=== PATIENT | female | born 1945 | race Caucasian/White ===

== ENCOUNTER 2016-05-11 13:22 | Emergency (ER) | payer MEDICARE ==
[2016-05-11 13:41] VITALS: BP 134/69
--- NOTE | 2016-05-11 15:17 | UC ---
Hand/Wrist HPI - HPI Summary HPI Summary: Pt presents with c/o left thumb pain. Pt reports getting left thumb caught in door 2Xs 5 weeks ago. Pt did not seek medical care s/p thumb injury. Pt reports that yesterday that her left thumb spontaneously became red, swollen, and tender. Pt denies fever or chills or recent injury. - History Of Current Complaint Chief Complaint: UCUpperExtremity Stated Complaint: THUMB PAIN-POST INJURY Time Seen by Provider: 05/11/16 14:26 Hx Obtained From: Patient ?: No Mechanism Of Injury: none. Onset/Duration: Sudden Onset - 1 day ago, Lasting Hours Severity Initially: Mild Severity Currently: Mild Pain Intensity: 3 Pain Scale Used: 0-10 Numeric Character Of Pain: Dull, Aching, Throbbing Alleviating: Rest Associated Signs And Symptoms: Positive: Swelling, Redness Related History: Dominant Hand Right - Allergies/Home Medications Allergies/Adverse Reactions: Allergies Allergy/AdvReac Type Severity Reaction Status Date / Time No Known Allergies Allergy Verified 05/11/16 13:41 Home Medications: Home Medications Aspirin [Aspirin 81 MG TAB] 81 mg PO 05/11/16 [History] Ibuprofen [Advil] 200 mg PO 05/11/16 [History] Lisinopril [Prinivil TAB 20 mg] 20 mg PO DAILY 05/11/16 [History Confirmed 05/11] PMH/Surg Hx/FS Hx/Imm Hx - Additional Past Medical History Additional PMH: had hip replacement surgery 4 weeks ago Previously Healthy: Yes Endocrine History Of: Denies: Diabetes, Thyroid Disease Cardiovascular History Of: Reports: Hypertension Denies: Cardiac Disorders Respiratory History Of: Denies: COPD, Asthma GI/ History Of: Denies: Ulcer - Surgical History Surgical History: Yes Surgery Procedure, Year, and Place: recient hip replacement - Family History Known Family History: Positive: Other - positive [facility] for URI - Social History Lives: With Family Alcohol Use: Occasionally Substance Use Type: None Smoking Status (MU): Never Smoked Tobacco Review of Systems Constitutional: Negative Skin: Other - erythema, tenderness left distal thumb Eyes: Negative ENT: Negative Respiratory: Negative Cardiovascular: Negative Gastrointestinal: Negative Genitourinary: Negative Motor: Negative Neurovascular: Negative Musculoskeletal: Edema - erythema, tenderness mild swelling left distal thumb Neurological: Negative Psychological: Negative All Other Systems Reviewed And Are Negative: Yes Physical Exam Triage Information Reviewed: Yes Appearance: Well-Appearing Vital Signs: Initial Vital Signs Temp 98.2 F 05/11/16 13:37 Pulse 96 05/11/16 13:37 Resp 18 05/11/16 13:37 BP 134/69 05/11/16 13:37 Pulse Ox 97 05/11/16 13:37 Eye Exam: Normal Neck exam: Normal Respiratory Exam: Normal Cardiovascular Exam: Normal Musculoskeletal Exam: Other Musculoskeletal: Positive: Edema @ - left distal thumb, Other: - erythema left distal thumb Neurological Exam: Normal Psychological Exam: Normal Skin Exam: Other - erythema, tenderness swelling (mild) Hand/Wrist Course/Dx - Differential Dx/Diagnosis Differential Diagnosis/HQI/PQRI: Cellulitis, Fracture, Gout, Infection, Other - osteomyelitis Provider Diagnoses: cellulitis Discharge - Discharge Plan Condition: Stable Disposition: HOME Prescriptions: Cephalexin CAP* [Keflex 500 CAP*] 500 mg PO Q12H #14 cap Patient Education Materials: Cellulitis (ED), Contusion in Adults (ED) Referrals: No Primary Care Phys,NOPCP [Primary Care Provider] - Additional Instructions: Please follow up with your PCP or return to clinic. I have provided a referral to an orthopedic provider for you to folllow up with as needed.
== END 2016-05-11 14:57 | disposition home or self-care (01) ==
LOC: UCEAST 13:22
DX: L03.012 Cellulitis of left finger (principal); I10 Essential (primary) hypertension; Z79.82 Long term (current) use of aspirin
CPT/HCPCS: 99212; G0463

== ENCOUNTER → 2016-06-05 11:45 | Day surgery (SDC) | payer MEDICARE ==
[~2016-06-05 11:45] MED LIST: Bupivacaine 0.5% SDV PF* 30 ML VIAL ONE
[2016-06-05 15:23] VITALS: BP 157/71
--- NOTE | 2016-06-06 05:21 | OP ---
DATE OF OPERATION: 06/05/16 - [facility] DATE OF : 45 SURGEON: Ashkan Madera MD. RESTAURANT LINE COOK: CARLITA Irvin. ANESTHESIOLOGIST: None. ANESTHESIA: Local only with 0.5% Marcaine digital block. PRE-OP DIAGNOSIS: Right thumbnail dystrophy and chronic paronychia. POST-OP DIAGNOSIS: Right thumbnail dystrophy and chronic paronychia. OPERATIVE PROCEDURES: 1. Avulsion of right thumb nail plate with cultures and specimen sent to pathology.. INDICATIONS: Anjana is a 71-year-old female who, over the last 6 months, has developed yellowish discoloration and partial detachment of the nail plate. A few weeks ago, she developed some warm red inflammation in the paronychial region. She went to [facility], got some antibiotics and this resolved. She has remained a little hyperemic and a little warm, and it is bothering her a lot less, but is still bothering her just a little bit. We had talked about treatment options. Ultimately, we elected to proceed with removal of the nail plate. ESTIMATED BLOOD LOSS: 2 mL. COMPLICATIONS: None. FINDINGS: As expected. DESCRIPTION OF PROCEDURE: Ms. Reynolds was seen in the preoperative holding area. The correct site, side and procedure were identified. We had a time-out and then I anesthetized the right thumb using a circumferential digital block with 0.5% Marcaine. Twenty or thirty minutes later, we came back to the operating room where the arm was prepped and draped with a Betadine scrub and then a formal time-out was performed. I began by using the curved iris scissors to remove the right thumb nail plate. It was partially detached radially, but still attached ulnarly. This was removed. There was a deeper layer of nail that was similarly removed with the iris scissors until there was nothing but nail bed at the base of the wound. More distally, there was a thickened layer over the sterile matrix that I used the edge of the iris scissors to peel off until I had what looked like a stable , more healthy-appearing layer of matrix throughout the entirety of the matrix. At this point, I divided the nail into multiple soft small sections and sent for aerobic and anaerobic and fungal cultures. I also sent it for permanent specimen with special instructions to analyze it for fungus and to consider a JULIO prep. The finger was then soaked for 5 minutes in a diluted Betadine solution. It was then irrigated clean. I then contoured a wrapper of a chromic gut suture and placed this to splint open the nail fold. This was attached loosely with two 4-0 nylon sutures. The tip of the thumb was then dressed with Xeroform, some ribboned 1-inch Kassandra and 1-inch Coban dressing. I had placed a Tourni-Cot prior to avulsing the nail plate. This was then removed after the dressing was on. The fingertip pinked up immediately. She was then taken to the recovery room in stable condition. [id number]/[facility] #: [id number] MORIS
== END | disposition home or self-care (01) ==
LOC: OREAST 11:45
PROVIDERS: ATTEND Orthopaedic Surgery Hand Surgery
DX: L60.3 Nail dystrophy (principal); B35.1 Tinea unguium; L03.011 Cellulitis of right finger
CPT/HCPCS: 87070; 87073; 87077; 87101; 87106; 87107; 87220; 88304; 88312

== ENCOUNTER 2019-01-03 10:38 | Observation (INO) | payer MEDICARE ==
--- NOTE | 2019-01-03 11:11 | ED ---
Syncope/Near Syncope - HPI Summary HPI Summary: Patient is a 73 y/o F presenting to the ED for a chief complaint of syncope on the morning of 01/03/19 at approximately 09:00. Patient is present with her sister. Patient states that she woke up with a sore throat, cough, nasal discharge, body aches, nausea, and dizziness when walking to make herself some tea. While sitting down in a chair because of the dizziness, the patient had a syncopal episode and fell on her left shoulder. Patient called her sister after the syncopal episode. Patient currently has left shoulder pain and limited ROM in the left arm due to the pain. Patient is able to ambulate the arm, but with pain. Pt denies any fever, chills, erythema of eyes, CP, SOB, abdominal pain, vomiting, dysuria, hematuria, edema, paresthesia or numbness in the bilateral UE , or rash. Patient denies head injury. Patient has had syncope in the past. Patient had an influenza vaccination a few weeks ago. Patient takes 20 mg lisinopril in the morning, amlodipine at night, and baby aspirin daily. Patient sees Dr. Ameya Javier. Patient lives alone. - History Of Current Complaint Chief Complaint: EDSyncope Time Seen by Provider: 01/03/19 10:56 Hx Obtained From: Patient Onset/Duration: Sudden Onset, Resolved Timing: Minutes Context: Loss Of Consciousness Activity At Onset: Other - While walking to make tea Associated Head Trauma: No Aggravating Factor(s): Nothing Alleviating Factor(s): Nothing Associated Signs And Symptoms: Dizzy, Pain - Left shoulder - Allergies/Home Medications Allergies/Adverse Reactions: Allergies Allergy/AdvReac Type Severity Reaction Status Date / Time No Known Allergies Allergy Verified 06/05/16 12:33 Home Medications: Home Medications Amlodipine Besylate [Amlodipine 2.5 mg tab] 2.5 mg PO BEDTIME 01/03/19 [History Confirmed 01/03/19] PMH/Surg Hx/FS Hx/Imm Hx Previously Healthy: Yes Endocrine/Hematology History: Denies: Hx Diabetes, Hx Thyroid Disease Cardiovascular History: Reports: Hx Hypertension Respiratory History: Denies: Hx Asthma, Hx Chronic Obstructive Pulmonary Disease (COPD) GI History: Denies: Hx Ulcer Sensory History: Denies: Hx Legally Blind, Hx Deafness Opthamlomology History: Denies: Hx Legally Blind EENT History: Denies: Hx Deafness - Cancer History Hx Chemotherapy: No Hx Radiation Therapy: No - Surgical History Surgical History: Yes Surgery Procedure, Year, and Place: Hip replacement Infectious Disease History: No Infectious Disease History: Denies: Hx Hepatitis, Hx Human Immunodeficiency Virus (HIV), Traveled Outside the [place] in Last 30 Days - Family History Known Family History: Positive: Other - positive [facility] for URI - Social History Occupation: Retired Lives: Alone Alcohol Use: Daily Hx Substance Use: No Substance Use Type: Reports: None Hx Tobacco Use: No Smoking Status (MU): Never Smoked Tobacco Review of Systems Negative: Fever, Chills Negative: Erythema Positive: Nasal Discharge. Negative: Sore Throat Negative: Chest Pain Positive: Cough. Negative: Shortness Of Breath Positive: Nausea. Negative: Abdominal Pain, Vomiting Negative: dysuria, hematuria Positive: Arthralgia - Left shoulder, Myalgia - Body aches, Decreased ROM - Left shoulder due to pain. Negative: Edema Negative: Rash Neurological: Other - Positive dizziness Positive: Syncope. Negative: Paresthesia - Bilateral UE, Numbness - Bilateral UE All Other Systems Reviewed And Are Negative: Yes Physical Exam - Summary Physical Exam Summary: Constitutional: Well-developed, Well-nourished, Alert. (-) Distressed Skin: Warm, Dry HENT: Normocephalic; Atraumatic Eyes: Conjunctiva normal Neck: Musculoskeletal ROM normal neck. (-) JVD, (-) Stridor, (-) Tracheal deviation Cardio: Rhythm regular, rate normal, Heart sounds normal; Intact distal pulses; The pedal pulses are 2+ and symmetric. Radial pulses are 2+ and symmetric. (-) Murmur Pulmonary/Chest wall: Effort normal. (-) Respiratory distress, (-) Wheezes, (-) Rales Abd: Soft, (-) tenderness, (-) Distension, (-) Guarding, (-) Rebound Musculoskeletal: (-) Edema Lymph: (-) Cervical adenopathy Neuro: Alert, Oriented x3 Psych: Mood and affect Normal Triage Information Reviewed: Yes Vital Signs On Initial Exam: Initial Vitals Temp Pulse Resp BP Pulse Ox 99.0 F 92 19 169/80 100 01/03/19 10:41 01/03/19 10:41 01/03/19 10:41 01/03/19 10:41 01/03/19 10:41 Vital Signs Reviewed: Yes Procedures - Sedation Patient Received Moderate/Deep Sedation with Procedure: No Diagnostics - Vital Signs Vital Signs Temp Pulse Resp BP Pulse Ox 01/03/19 11:00 99 01/03/19 10:43 85 17 99 01/03/19 10:41 99.0 F 92 19 169/80 100 - Laboratory Result Diagrams: 01/03/19 11:38 01/03/19 11:38 Lab Statement: Any lab studies that have been ordered have been reviewed, and results considered in the medical decision making process. - Radiology Shoulder X-ray Radiology Interpretation Completed By: Radiologist Summary of Radiographic Findings: Shoulder X-ray IMPRESSION: #. Nonarticular fracture distal third of the clavicle. Reviewed by ED physician. Re-Evaluation - Re-Evaluation First Re-Evaluation Time: 13:59 Change: Unchanged Comment: At 13:59, patient is reporting frequent urination. Course/Dx Course Of Treatment: Patient is a 73 y/o F presenting to the ED for a chief complaint of syncope on the morning of 01/03/19 at approximately 09:00. Patient is present with her sister. Patient states that she woke up with a sore throat, cough, nasal discharge, body aches, nausea, and dizziness when walking to make herself some tea. While sitting down in a chair because of the dizziness, the patient had a syncopal episode and fell on her left shoulder. Patient called her sister after the syncopal episode. Patient currently has left shoulder pain and limited ROM in the left arm due to the pain. Patient is able to ambulate the arm, but with pain. Pt denies any fever, chills, erythema of eyes, CP, SOB, abdominal pain, vomiting, dysuria, hematuria, edema, paresthesia or numbness in the bilateral UE, or rash. Patient denies head injury. Patient has had syncope in the past. Patient had an influenza vaccination a few weeks ago. Patient takes 20 mg lisinopril in the morning, amlodipine at night, and baby aspirin daily. Patient sees Dr. Ameya Javier. Patient lives alone. On exam, unremarkable findings. In the ED course, patient was given fluids. Laboratory abnormal findings: WBC 14.6, RBC 4.88, absolute neuts 13.2, absolute lymphs 0.5, APTT 59.7, sodium 126, chloride 97, carbon dioxide 18, glucose 108, urine specific gravity 1.009, urine ketones trace, urine leukocyte esterase trace, amorphous crystals present. Shoulder X-ray IMPRESSION: #. Nonarticular fracture distal third of the clavicle. At 13:59, patient is reporting frequent urination. At 14:04, Dr. Francine Anaya agrees to admit the patient to [facility] with a diagnosis of syncope, chills, and left clavicle fracture. Patient will be admitted to [facility] with a diagnosis of syncope, chills, and left clavicle fracture. - Diagnoses Provider Diagnoses: Syncope, Chills, Fracture of left clavicle - Physician Notifications Discussed Care of Patient With: Francine Anaya - At 14:04, Dr. Francine Anaya agrees to admit the patient to [facility] with a diagnosis of syncope, chills, and left clavicle fracture. Time Discussed With Above Provider: 14:04 Instructed by Provider To: Admit As Inpatient Discharge ED - Sign-Out/Discharge Documenting (check all that apply): Patient Departure - Discharge Plan Condition: Stable Disposition: ADMITTED TO [facility] Referrals: Ameya Javier MD [Primary Care Provider] - - Attestation Statements Document Initiated by Scribe: Yes Documenting Scribe: Ely Rosado Provider For Whom Scribe is Documenting (Include Credential): Xander Mukherjee MD Scribe Attestation: Ely Slaughter, scribed for Xander Mukherjee MD on 01/03/19 at 1434. Status of Scribe Document: Ready
[2019-01-03] MEDS: NS 0.9% 1000 ML** 2,000 ML IV ONE (11:52)
[2019-01-03 11:55] LABS: ABS Basophils 0.1 10^3/ul (0-0.2); ABS Lymphocytes 0.5 10^3/ul (1.0-4.8); ABS Monocytes 0.8 10^3/ul (0-0.8); ABS Neutrophils 13.2 10^3/ul (1.5-7.7); Hematocrit 42 % (35-47); Hemoglobin 14.3 g/dL (12.0-16.0); Lymphocyte % 3.3 %; Mean Corpuscular HGB Conc 34 g/dL (31-36); Mean Corpuscular Hemoglobin 29 pg (27-31); Mean Corpuscular Volume 86 fL (80-97); Mean Platelet Volume 7.5 fL (7.4-10.4); Nucleated Red Blood Cells % 0.1; Platelet Count 323 10^3/uL (150-450); Red Blood Count 4.88 10^6 /uL (3.70-4.87); Red Cell Distribution Width 13 % (10-15); White Blood Count 14.6 10^3/uL (3.5-10.8)
[2019-01-03 12:01] LABS: Activated Partial Thrombo Time 59.7 seconds (26.0-38.0); INR 0.98 (0.82-1.09)
[2019-01-03 12:12] LABS: Rapid Strep Molecular Negative (Negative)
[2019-01-03 12:21] LABS: Influenza A Molecular NEGATIVE (Negative); Influenza B Molecular NEGATIVE (Negative)
[2019-01-03 13:04] LABS: Albumin 4.1 g/dL (3.2-5.2); Albumin/Globulin Ratio 1.2 (1-3); BUN/Creatinine Ratio 16.4 (8-20); Calcium 9.8 mg/dL (8.6-10.3); EGFR African American 116.3 (>60); EGFR Non-African American 96.1 (>60); Globulin 3.4 g/dL (2-4); Total Bilirubin 0.6 mg/dL (0.2-1.0); Total Protein 7.5 g/dL (6.4-8.9)
[2019-01-03 13:06] LABS: Urine Appearance Cloudy; Urine Bacteria Absent (Absent); Urine Bilirubin Negative (Negative); Urine Blood Negative (Negative); Urine Color Yellow; Urine Glucose Negative (Negative); Urine Ketones Trace (Negative); Urine Nitrite Negative (Negative); Urine Protein Negative (Negative); Urine Red Blood Cell Trace(0-2/hpf) (Absent); Urine Specific Gravity 1.009 (1.010-1.030); Urine Urobilinogen Negative (Negative); Urine White Blood Cell Trace(0-5/hpf) (Absent)
[2019-01-03] MEDS ORDERED: Acetaminophen TAB* 325 MG PO PRN (16:15)
[2019-01-03] MEDS ORDERED: oxyCODONE TAB* 5 MG TAB PO PRN (16:16)
[2019-01-03] MEDS ORDERED: Morphine INJ* 2 MG/ML 1 ML SYRINGE (TWO MG - NEW SYRINGE VERSION) IV PRN (16:16)
[2019-01-03] MEDS ORDERED: NS 0.9% 1000 ML** 1,000 ML IV SCH (16:30)
[2019-01-03] MEDS ORDERED: Ibuprofen TAB* 600 MG PO PRN (16:36)
[2019-01-03] MEDS ORDERED: Benzocaine/Menthol LOZ* 1 LOZENGE MT PRN (16:40)
[2019-01-03 17:02] LABS: TSH (Thyroid Stimulating Horm) 0.79 mcIU/mL (0.34-5.60)
--- NOTE | 2019-01-03 20:44 | HP ---
CC: Dr. Javier * HISTORY AND PHYSICAL: DATE OF ADMISSION: 01/03/19 TIME OF EVALUATION: 3:35 p.m. PRIMARY CARE PROVIDER: Dr. Javier. CHIEF COMPLAINT: "I passed out." HISTORY OF PRESENT ILLNESS: Mrs. Reynolds is a 73-year-old female with a past medical history of hypertension, ocular migraine, osteoarthritis, who presents to the emergency room after a syncopal episode at home. The patient states that she was feeling well yesterday. In the afternoon, she went for a long walk with her sister and she was feeling a little tired when she returned. Last night, she developed mild sore throat, but went to bed, feeling relatively well. She woke up this morning and she was having more sore throat and some nausea. She walked to the kitchen, made some tea, and she started to feel dizzy. She knew she was going to pass out, and her initial intention was to lower herself down to the floor, but she eventually sat on a chair, passed out, and fell from the chair towards her left side. She states that her loss of consciousness was brief and she had some difficulty getting up because of pain on her left shoulder. She states that she had true prior syncopal episodes, both of them in the postop period (one after she had her hip replaced and another one after Achilles tendon surgery), and the impression was that those episodes were related to the surgical procedures and medications. She states that during this episode, she had some urinary incontinence, but also states that this is not uncommon for her, as she has had more pronounced urinary incontinence. She denies chest pain, palpitations, vomiting, diarrhea, or urinary complaints. She states that she felt dizzy and her vision was going dark before she passed out. At the time of my interview, her major complaint is her left shoulder. She still has some mild sore throat, but this is not bothering her much at this time. PAST MEDICAL HISTORY: 1. Hypertension. 2. Ocular migraine. 3. Osteoarthritis. PAST SURGICAL HISTORY: 1. Status post left hip replacement in 2016. 2. Status post Achilles tendon repair in 2001. MEDICATIONS: 1. Amlodipine 2.5 mg p.o. at bedtime. 2. Aspirin 81 mg p.o. daily. 3. Lisinopril 20 mg p.o. daily. ALLERGIES: No known drug allergies. FAMILY HISTORY: The patient's father had a history of Alzheimer's and he passed of old age at 95. The patient's mother had a stroke. SOCIAL HISTORY: The patient denies tobacco or drug use. She usually has a small glass of wine at night with dinner. Surrogate decision maker is her sister, Stefanie Franco, phone number is [phone]. REVIEW OF SYSTEMS: A 14-point review of systems was performed and all the pertinent negatives and positives as per HPI. PHYSICAL EXAMINATION GENERAL: The patient is a pleasant elderly lady, sitting up in the ED stretcher , in no acute distress. VITAL SIGNS: Temperature 100.2, heart rate is 95, respiratory rate is 18, oxygen saturation is 100% on room air, blood pressure is 146/76. HEENT: Pupils are equal. Dry mucous membranes. The patient has mild erythema over the pharynx, but no exudate. CHEST: Breath sounds bilaterally with no added sounds. CVS: Normal S1, S2. Regular rate and rhythm. ABDOMEN: Soft, nontender, nondistended. Bowel sounds are present. EXTREMITIES: No edema. The patient has an ecchymosis to the posterior aspect of her left shoulder and limited range of motion secondary to pain. NEUROLOGIC: She is alert x3. Face is symmetric. Speech is clear. She is able to move all 4 extremities, although her left upper extremity is limited due to pain. Sensation is intact. DIAGNOSTIC STUDIES/LAB DATA: The patient had a CBC that showed a WBC of 14.6, hemoglobin of 14.3, hematocrit of 42, platelets of 323 with 90% neutrophils. INR is 0.98. Chemistry showed a sodium of 126, potassium of 4, chloride of 97, bicarb of 18, anion gap of 11, BUN of 10, creatinine of 0.61, glucose of 108, lactic acid is 1.2, calcium is 9.8. LFTs are normal. Troponin is 0. Urinalysis showed trace ketones, trace LE, and amorphous crystals are present. Influenza A and B were negative as well as Group A strep. Shoulder x-ray showed a non-articular fracture of the distal third of the clavicle. ASSESSMENT AND PLAN: Ms. Reynolds is a 73-year-old female with a past medical history of hypertension, ocular migraine, osteoarthritis, who presents to the emergency room after a syncopal episode. 1. Syncope. Etiology is unclear at this time. Clinically, she appears to be mildly dehydrated, but it is not clear to me that is enough to explain her syncopal episode. She will be admitted as observation to telemetry floor where we are going to monitor her. We will check orthostatic vital signs and she will received gentle IV hydration. She will be monitored on telemetry and we are going to check an echocardiogram. The patient had prior syncopal episodes in the past, but they are usually attributed to her postop state. At this point, she denies chest pain, but I am going to check serial troponins to rule out acute coronary syndrome. There are no focal neurological deficits at this time to suggest a THREAD PULLING MACHINE ATTENDANT etiology. Seizure is on the differential diagnosis, as she had urinary incontinence, but her description is mostly suggestive of a syncopal episode. Depending on the results of her workup and further symptoms, we may pursue CT brain and EEG depending if she has any change in condition. 2. Mild pharyngitis. I believe this is likely viral. Her symptoms started yesterday. She has a low-grade temperature in the emergency room and some leukocytosis, but I do not think antibiotics are indicated at this time, as I believe this to be viral for now. She will receive gentle IV hydration and symptomatic treatment. 3. Hypertension. We will continue her amlodipine and lisinopril with holding parameters. 4. DVT prophylaxis. The patient has a score of 2 on a DVT Prophylaxis Risk Assessment Guide and she will be started on subcutaneous heparin. 5. Code status is full. 6. Hyponatremia. The patient has had hyponatremia in the past, but not as low as today. This may be exacerbated in the setting of dehydration. I will recheck serum urine osmolality as well as urinary sodium. As I believe, she is on the grain drier side at this time, she will receive gentle IV hydration and we will monitor her sodium. TIME SPENT: Approximately 55 minutes was spent with patient interview, medical records review, physical examination to complete this admission, more than half this time was spent [id number] with the patient and coordination of care. [id number]/[facility] #: [id number] MORIS
[2019-01-03] MEDS ORDERED: amLODIPine TAB* 5 MG PO SCH (21:00)
--- NOTE | 2019-01-03 21:50 | CONS ---
CONSULTATION REPORT: DATE OF CONSULT: 01/03/19 REASON FOR CONSULT: Left lateral clavicle fracture. HISTORY OF PRESENT ILLNESS: The patient is a 73-year-old woman, right-hand dominant, retired systems accountant, who lives alone, who sustained a fall at home secondary to an episode of syncope, earlier today, resulting in left shoulder pain. The patient was brought in by ambulance to [facility] Emergency Department because of her left shoulder pain and she was diagnosed in the emergency department with a left clavicle fracture. She has been admitted for workup of syncope. She states that she has no prior history of left shoulder injury. The patient states that she has fainted several times in her life, but none recent. The patient states that this morning, she came in to the kitchen and sat down on a chair. She felt slightly dizzy when in the kitchen and when she sat down on the chair, she for a very brief second blacked out and fell. She was awake and alert almost immediately when she hit the ground. She noted some left shoulder pain with and without movement and was concerned about this and so called an ambulance. The patient shared with the emergency room staff that she had awoken with a sore throat, cough, nasal discharge, body aches, nausea, and dizziness, and that she was walking in the kitchen to make herself tea. The patient could not recall when speaking with me whether or not she had recently gone to the bathroom prior to this fainting episode. After the fainting episode, the patient called her sister. The patient came to the emergency department. PAST MEDICAL HISTORY: Hypertension. PAST SURGICAL HISTORY: Hip replacement surgery in [place]. MEDICATIONS: Amlodipine p.o. q.h.s. ALLERGIES: No known drug allergies. FAMILY HISTORY: Noncontributory. SOCIAL HISTORY: Right-hand dominant. Retired. Formerly an systems accountant, lives alone. Niece lives locally and was visiting hospital room at the time of the consultation. The patient has never smoked tobacco. Has daily alcohol use. REVIEW OF SYSTEMS: The patient detailed to emergency department positive recent nasal discharge, cough, nausea, body aches, dizziness, recent syncopal episode. The patient has left shoulder pain. No numbness or tingling. PHYSICAL EXAM: No acute distress, alert and oriented, appropriate mood and affect, appropriate dress and hygiene, well-coordinated bilateral upper and lower extremities. The patient is lying in bed with the head of the bed elevated. Vital Signs: Most currently from 5:59 p.m. today, body temperature 98.0 degrees Fahrenheit temporal, pulse 101, blood pressure 153/65, respiratory rate 18, O2 saturation of 100% on room air. Left shoulder exam shows mild-to- moderate soft tissue swelling. There is some focal ecchymosis posterosuperiorly about the shoulder. Positive tenderness to palpation about the distal clavicle. Pain with passive range of motion of the left shoulder joint. Left upper extremity neurovascularly intact distally. DIAGNOSTIC STUDIES/LAB DATA: White blood cell count 14.6 with a neutrophil percentage of 90.1%. Troponin 0.00 and 0.01. Sodium 126. Nitrite negative, leukocyte esterase trace, urine white blood cells trace with absent bacteria. Negative influenza and group A strep rapid testing. Imaging: X-rays of the left shoulder obtained today demonstrated a displaced lateral clavicle fracture. There is displacement of the medial fragment superiorly of approximately 100%. Looking at the scapular Y view, it appears that the medial fragment is also displaced posteriorly, although it is difficult to note for sure. Axillary lateral view appears to confirm this posterior displacement of the medial fragment. Agree with the radiologist that a bone is certainly osteopenic. No other fractures visible about the shoulder girdle. ASSESSMENT: Left lateral clavicle fracture, displaced. PLAN: 1. Discussed with the patient as well as briefly with her niece the clavicle anatomy, clavicle fractures in general, both midshaft, lateral, and medial, and information regarding prognosis and treatment of lateral clavicle fractures. 2. Discussed the high incidence of bony nonunion of displaced lateral clavicle fractures, but also discussed that only approximately 50% of these bony nonunion are symptomatically painful. 3. Offer the patient both nonoperative and operative management. I told the patient that my preference for surgical technique in her case given the small fragment lateral and the osteopenic bone, would be an acromial hook plate, that would be in placed in 1 procedure and then would be removed in a second procedure approximately 4 months postoperatively. I believe that this would be a better surgical fix than would be superior plate with or without coracoclavicular tape fixation. 4. The patient has already been placed in a sling by the time we finished our consultation. I recommend that the patient remain in the sling for comfort. 5. I suspect given the patient's activity level, being an active outdoors person and hiker, she is leaning towards having this surgically fixed. If she does have it surgically fixed, especially given her recent syncopal episode, she would need to be optimized and cleared by a medical doctor. I told the patient that this could be elective outpatient surgery or if the timing aligns correctly and there is sufficient available operating room time, this is a surgery I could conceivably do on 01/05/19, in the late afternoon. 6. I gave the patient my telephone number and business card. She can call me with any questions or concerns. Orthopedics will continue to follow the patient while she is an inpatient and we will adjust our plans accordingly based on the patient's preference for surgery or no surgery, based on the findings of the patient's syncopal workup, having been admitted to the hospitalist service, and based on the patient being optimized for surgery and the appropriateness of timing of surgery for the patient given medical, surgical , and administrative considerations. [id number]/[facility] #: [id number] MORIS
[2019-01-03] MEDS: Heparin VIAL(*) 5000 UNITS/ML VIAL (FIVE THOUSAND) SUBCUT SCH (22:15)
[2019-01-03 22:54] LABS: Troponin I 0.01 ng/mL (<0.04)
[2019-01-04 05:36] LABS: ABS Lymphocytes 0.9 10^3/ul (1.0-4.8); ABS Monocytes 0.9 10^3/ul (0-0.8); ABS Neutrophils 7.8 10^3/ul (1.5-7.7); Eosinophil % 0.1 %; Hematocrit 36 % (35-47); Lymphocyte % 9.2 %; Mean Corpuscular HGB Conc 33 g/dL (31-36); Mean Corpuscular Hemoglobin 29 pg (27-31); Mean Corpuscular Volume 87 fL (80-97); Mean Platelet Volume 7.8 fL (7.4-10.4); Platelet Count 285 10^3/uL (150-450); Red Blood Count 4.11 10^6 /uL (3.70-4.87); Red Cell Distribution Width 13 % (10-15); White Blood Count 9.7 10^3/uL (3.5-10.8)
[2019-01-04] MEDS: Heparin VIAL(*) 5000 UNITS/ML VIAL (FIVE THOUSAND) SUBCUT SCH (05:44)
[2019-01-04 05:52] LABS: Calcium 8.6 mg/dL (8.6-10.3); EGFR African American 146.3 (>60); EGFR Non-African American 120.9 (>60); Potassium 3.4 mmol/L (3.5-5.0)
--- NOTE | 2019-01-04 08:24 | PN ---
Subjective - Subjective Reason for Note: Discharge Note History: DISCHARGE SUMMARY; I reviewed Ashleigh Reynolds's presentation with the patient and Dr. Francine Anaya' s admitting H and P, and Dr. Faisal King's orthopedic consultation note. She has a viral pharyngitis and had been lying in bed. She got up to make tea. She felt light headed and sat down in a chair, and fainted. She woke with left shoulder pain. She has a history of vasovagal syncope. Today, her pharyngitis is feeling much better and she feels ready to go home. She has good pain control with ibuprofen. Active Problems: Active Problems Closed left clavicular fracture (Acute) S42.002A Pharyngitis with viral syndrome (Acute) J02.9, B34.9 Syncope (Acute) R55 Essential hypertension (Chronic) I10 Osteoarthritis of both hips (Chronic) M16.0 Osteopenia (Chronic) M85.80 Raynaud phenomenon (Chronic) I73.00 Current Medications: Current Medications Amlodipine Besylate (Norvasc Tab*) 2.5 mg PO BEDTIME PENDING SALE TO [facility] Last Admin: 01/03/19 22:15 Dose: Not Given Aspirin (Aspirin Ec Tab*) 81 mg PO DAILY PENDING SALE TO [facility] Heparin Sodium (Porcine) (Heparin Vial(*)) 5,000 units SUBCUT Q8HR PENDING SALE TO [facility] Last Admin: 01/04/19 05:44 Dose: 5,000 units Sodium Chloride (Ns 0.9% 1000 Ml) 1,000 mls @ 75 mls/hr IV PER RATE PENDING SALE TO [facility] Ibuprofen (Motrin Tab*) 600 mg PO Q6H PRN PRN Reason: MILD PAIN or TEMP > 100.4 Last Admin: 01/03/19 16:44 Dose: 600 mg Lisinopril (Prinivil Tab*) 20 mg PO DAILY PENDING SALE TO [facility] Morphine Sulfate (Morphine Inj (Syringe))*) 1 mg IV Q4H PRN PRN Reason: SEVERE PAIN Oxycodone HCl (Roxycodone Tab*) 5 mg PO Q4H PRN PRN Reason: PAIN - MODERATE Throat Lozenges (Chloraseptic Addison*) 1 addison MT Q4H PRN PRN Reason: SORE THROAT - Review of Systems Constitutional Symptoms: No: Fatigue, Fever HEENT: No Other - sore throat is improving Eyes: Negative: Change in Vision, Double Vision Pulmonary: Negative: Cough, Sputum, Hemoptysis Cardiology: Positive: Syncope Negative: Chest Pain, Shortness of Breath, Palpitations, Swelling of Ankles, Proximal NocturnalDyspnea, Orthopnoea Gastroenterology: Negative: Abdominal Pain, Nausea, Vomiting Genital - Urinary: Negative: Dysuria Neurology: Positive: Migraines - previous history of migraines - no headache now Negative: Headache, Dizziness, Change in Balancing, Change in Coordination, Change in Memory, Change in Speech, Change in Sphincter Function, Numbness\\ Paresthesiae, Unexplained Weakness, Hx of Stroke\\TIA, Hx of Seizures Home Medications: Home Medications Medication Instructions Recorded Confirmed Type Aspirin [Aspirin 81 MG TAB] 81 mg PO DAILY 05/11/16 01/03/19 History Lisinopril [Prinivil TAB 20 mg] 20 mg PO DAILY 05/11/16 01/03/19 History Amlodipine Besylate [Amlodipine 2.5 mg PO BEDTIME 01/03/19 01/03/19 History 2.5 mg tab] Allergies: Allergies Allergy/AdvReac Type Severity Reaction Status Date / Time No Known Allergies Allergy Verified 01/03/19 17:07 Objective - Vital Signs Vital Signs: Vital Signs 01/03/19 01/03/19 01/03/19 10:41 10:43 11:00 Temperature 99.0 F Pulse Rate 92 85 86 Respiratory 19 17 19 Rate Blood Pressure 169/80 (mmHg) O2 Sat by Pulse 100 99 100 Oximetry 01/03/19 01/03/19 01/03/19 11:13 11:43 12:00 Temperature Pulse Rate 92 Respiratory 19 20 14 Rate Blood Pressure 169/88 146/76 (mmHg) O2 Sat by Pulse Oximetry 01/03/19 01/03/19 01/03/19 13:00 14:00 16:32 Temperature 100.2 F Pulse Rate Respiratory 18 21 Rate Blood Pressure (mmHg) O2 Sat by Pulse Oximetry 01/03/19 01/03/19 01/03/19 16:34 16:35 17:59 Temperature 98.0 F Pulse Rate 101 Respiratory 25 23 18 Rate Blood Pressure 156/73 153/65 (mmHg) O2 Sat by Pulse 100 Oximetry 01/03/19 01/03/19 01/03/19 19:05 19:08 19:09 Temperature 98.6 F Pulse Rate 103 101 107 Respiratory 16 16 20 Rate Blood Pressure 141/69 133/62 106/56 (mmHg) O2 Sat by Pulse 97 98 97 Oximetry 01/03/19 01/03/19 01/03/19 20:00 20:26 23:15 Temperature 97.4 F 98.6 F Pulse Rate 63 89 Respiratory 16 18 20 Rate Blood Pressure 98/47 141/59 (mmHg) O2 Sat by Pulse 97 97 99 Oximetry 01/04/19 03:15 Temperature 98.7 F Pulse Rate 90 Respiratory 16 Rate Blood Pressure 142/69 (mmHg) O2 Sat by Pulse 98 Oximetry - Intake and Output Intake and Output: Intake & Output 01/01/19 01/02/19 01/03/19 01/04/19 12:59 11:59 11:59 11:59 Intake Total 1999 Output Total 0 Balance 1999 Weight 130 lb 132 lb Intake: IV Fluids 1999 Oral 0 Output: Urine 0 ADLs: Meal Record Start: 01/03/19 16: 57 Freq: DAILY@0900,1400,1800 Status: Active Protocol: Created 01/03/19 16:57 System (Rec: 01/03/19 16:57 System [email or web address]) Intake and Output Start: 01/03/19 10: 45 Freq: Status: Active Protocol: Created 01/03/19 10:45 System (Rec: 01/03/19 10:45 System [id number]) Intake and Output Start: 01/03/19 16: 57 Freq: DAILY@0600,1400,2200 Status: Active Protocol: Created 01/03/19 16:57 System (Rec: 01/03/19 16:57 System [email or web address]) Document 01/03/19 20:09 [id number] (Rec: 01/03/19 20:11 [id number] [id number]) Document 01/04/19 06:00 [id number] (Rec: 01/04/19 06:49 [id number] [email or web address]) - Physical Exam General Physical Exam Comment: She is warm and well perfused. She is fully alert and oriented, is able to give a good account of herself. She has a mild pharyngitis on inspection General: No Cyanosis, No Anemia, No Jaundice, No Clubbing Eye Exam: bilateral: EOMI Skin: Normal: Rash Lungs and Chest: Yes: Chest Expansion Full, Chest Expansion Symetrica, Percussion Note Resonant, Vessicular Breath Sounds. No: Crackles, Wheezes, Respiratory Distress Heart Rate and Rhythm: Regular JVP: Not Elevated Additional Cardiovascular: Yes: Normal Heart Sounds. No: Heart Murmur, Pedal Edema Abdominal Exam: Yes: Soft, Bowel Sounds Present. No: Distention, Abdominal Tenderness - Extremities Cranial Nerves II-XII Intact: Yes Limbs: Normal Power, Normal Tone, Normal Coordination - finger-nose - Neuro Orientation: A/O x3 Psychiatric: Normal Speech: Normal Results - Results Lab Results: Laboratory Results - last 24 hr 01/03/19 01/03/19 01/03/19 11:38 11:38 11:38 WBC 14.6 H RBC 4.88 H Hgb 14.3 Hct 42 MCV 86 MCH 29 MCHC 34 RDW 13 Plt Count 323 MPV 7.5 Neut % (Auto) 90.1 Lymph % (Auto) 3.3 [place] % (Auto) 5.6 Eos % (Auto) 0.0 Baso % (Auto) 1.0 Absolute Neuts (auto) 13.2 H Absolute Lymphs (auto) 0.5 L Absolute Monos (auto) 0.8 Absolute Eos (auto) 0.0 Absolute Basos (auto) 0.1 Absolute Nucleated RBC 0.0 Nucleated RBC % 0.1 INR (Anticoag Therapy) 0.98 APTT 59.7 H Sodium 126 L Potassium 4.0 Chloride 97 L Carbon Dioxide 18 L Anion Gap 11 BUN 10 Creatinine 0.61 Est GFR ( Amer) 116.3 Est GFR (Non-Af Amer) 96.1 BUN/Creatinine Ratio 16.4 Glucose 108 H Serum Osmolality Lactic Acid Calcium 9.8 Total Bilirubin 0.60 AST 19 ALT 11 Alkaline Phosphatase 93 Troponin I 0.00 Total Protein 7.5 Albumin 4.1 Globulin 3.4 Albumin/Globulin Ratio 1.2 TSH 0.79 Urine Color Urine Appearance Urine pH Ur Specific [place] Urine Protein Urine Ketones Urine Blood Urine Nitrate Urine Bilirubin Urine Urobilinogen Ur Leukocyte Esterase Urine WBC (Auto) Urine RBC (Auto) Amorphous Crystals Urine Bacteria Urine Osmolality U Sodium Concentration Urine Glucose Influenza A (Rapid) Influenza B (Rapid) Group A Strep Rapid 01/03/19 01/03/19 01/03/19 11:38 11:38 11:51 WBC RBC Hgb Hct MCV MCH MCHC RDW Plt Count MPV Neut % (Auto) Lymph % (Auto) [place] % (Auto) Eos % (Auto) Baso % (Auto) Absolute Neuts (auto) Absolute Lymphs (auto) Absolute Monos (auto) Absolute Eos (auto) Absolute Basos (auto) Absolute Nucleated RBC Nucleated RBC % INR (Anticoag Therapy) APTT Sodium Potassium Chloride Carbon Dioxide Anion Gap BUN Creatinine Est GFR ( Amer) Est GFR (Non-Af Amer) BUN/Creatinine Ratio Glucose Serum Osmolality 275 Lactic Acid 1.2 Calcium Total Bilirubin AST ALT Alkaline Phosphatase Troponin I Total Protein Albumin Globulin Albumin/Globulin Ratio TSH Urine Color Urine Appearance Urine pH Ur Specific [place] Urine Protein Urine Ketones Urine Blood Urine Nitrate Urine Bilirubin Urine Urobilinogen Ur Leukocyte Esterase Urine WBC (Auto) Urine RBC (Auto) Amorphous Crystals Urine Bacteria Urine Osmolality U Sodium Concentration Urine Glucose Influenza A (Rapid) Influenza B (Rapid) Group A Strep Rapid Negative 01/03/19 01/03/19 01/03/19 11:51 12:41 16:20 WBC RBC Hgb Hct MCV MCH MCHC RDW Plt Count MPV Neut % (Auto) Lymph % (Auto) [place] % (Auto) Eos % (Auto) Baso % (Auto) Absolute Neuts (auto) Absolute Lymphs (auto) Absolute Monos (auto) Absolute Eos (auto) Absolute Basos (auto) Absolute Nucleated RBC Nucleated RBC % INR (Anticoag Therapy) APTT Sodium Potassium Chloride Carbon Dioxide Anion Gap BUN Creatinine Est GFR ( Amer) Est GFR (Non-Af Amer) BUN/Creatinine Ratio Glucose Serum Osmolality Lactic Acid 1.1 Calcium Total Bilirubin AST ALT Alkaline Phosphatase Troponin I Total Protein Albumin Globulin Albumin/Globulin Ratio TSH Urine Color Yellow Urine Appearance Cloudy Urine pH 7.0 Ur Specific [place] 1.009 L Urine Protein Negative Urine Ketones Trace A Urine Blood Negative Urine Nitrate Negative Urine Bilirubin Negative Urine Urobilinogen Negative Ur Leukocyte Esterase Trace A Urine WBC (Auto) Trace(0-5/hpf) Urine RBC (Auto) Trace(0-2/hpf) Amorphous Crystals Present A Urine Bacteria Absent Urine Osmolality U Sodium Concentration Urine Glucose Negative Influenza A (Rapid) Negative Influenza B (Rapid) Negative Group A Strep Rapid 01/03/19 01/03/19 01/04/19 18:39 21:39 04:32 WBC 9.7 RBC 4.11 Hgb 12.0 Hct 36 MCV 87 MCH 29 MCHC 33 RDW 13 Plt Count 285 MPV 7.8 Neut % (Auto) 81.0 Lymph % (Auto) 9.2 [place] % (Auto) 9.5 Eos % (Auto) 0.1 Baso % (Auto) 0.2 Absolute Neuts (auto) 7.8 H Absolute Lymphs (auto) 0.9 L Absolute Monos (auto) 0.9 H Absolute Eos (auto) 0.0 Absolute Basos (auto) 0.0 Absolute Nucleated RBC 0.0 Nucleated RBC % 0.0 INR (Anticoag Therapy) APTT Sodium Potassium Chloride Carbon Dioxide Anion Gap BUN Creatinine Est GFR ( Amer) Est GFR (Non-Af Amer) BUN/Creatinine Ratio Glucose Serum Osmolality Lactic Acid Calcium Total Bilirubin AST ALT Alkaline Phosphatase Troponin I 0.01 0.01 Total Protein Albumin Globulin Albumin/Globulin Ratio TSH Urine Color Urine Appearance Urine pH Ur Specific [place] Urine Protein Urine Ketones Urine Blood Urine Nitrate Urine Bilirubin Urine Urobilinogen Ur Leukocyte Esterase Urine WBC (Auto) Urine RBC (Auto) Amorphous Crystals Urine Bacteria Urine Osmolality U Sodium Concentration Urine Glucose Influenza A (Rapid) Influenza B (Rapid) Group A Strep Rapid 01/04/19 01/04/19 01/04/19 04:32 05:30 05:30 WBC RBC Hgb Hct MCV MCH MCHC RDW Plt Count MPV Neut % (Auto) Lymph % (Auto) [place] % (Auto) Eos % (Auto) Baso % (Auto) Absolute Neuts (auto) Absolute Lymphs (auto) Absolute Monos (auto) Absolute Eos (auto) Absolute Basos (auto) Absolute Nucleated RBC Nucleated RBC % INR (Anticoag Therapy) APTT Sodium 131 L Potassium 3.4 L Chloride 105 Carbon Dioxide 22 Anion Gap 4 BUN 9 Creatinine 0.50 L Est GFR ( Amer) 146.3 Est GFR (Non-Af Amer) 120.9 BUN/Creatinine Ratio 18.0 Glucose 100 Serum Osmolality Lactic Acid Calcium 8.6 Total Bilirubin AST ALT Alkaline Phosphatase Troponin I Total Protein Albumin Globulin Albumin/Globulin Ratio TSH Urine Color Urine Appearance Urine pH Ur Specific [place] Urine Protein Urine Ketones Urine Blood Urine Nitrate Urine Bilirubin Urine Urobilinogen Ur Leukocyte Esterase Urine WBC (Auto) Urine RBC (Auto) Amorphous Crystals Urine Bacteria Urine Osmolality 481 U Sodium Concentration 72 Urine Glucose Influenza A (Rapid) Influenza B (Rapid) Group A Strep Rapid Radiology Results: Patient Name: ASHLEIGH REYNOLDS Medical Record#: [id number] Ordering Physician: Xander Mukherjee MD Acct.#: [id number] : 1945 Age: 73 Sex: F Location: EMERGENCY DEPARTMENT Exam Date: 01/03/191114 ADM Status: REG ER Order Information: SHOULDER LEFT 2+ VWS Accession Number: [id number] CPT: 53933 Indication: Syncopal episode. Fall. LEFT shoulder pain superior aspect with anterior and posterior radiation. Comparison: May 11, 2007 DEXA scan. Technique: Internal rotation AP, external rotation Grashey, scapular Y, axillary views LEFT shoulder Report: #. Nonarticular fracture distal third of the clavicle with 1 shaft width inferior displacement and up to 0.8 cm transverse gap. Overlying soft tissue swelling. Predisposing decreased bone density. No additional fracture evident. #. Normal articular alignment. Mild AC joint osteoarthritis. IMPRESSION: #. Nonarticular fracture distal third of the clavicle. <Electronically signed by Praful Lujan MD in OV> 01/03/19 1237 Dictated By: Praful Lujan MD Dictated Date/Time: 01/03/19 1234 Transcribed Date/Time: 01/03/19 1234 Copy to: CC:Ameya Javier MD; Xander Mukherjee MD Imaging - [facility] Imaging - [place] [facility] [address] [address] ph ([phone]) ph ([phone]) ph ([phone]) This report is only to be considered final once signed by the Provider(s) as displayed in the "<Electronically Signed by >" field (s). Absence of a signature indicates the report is in a draft status and still needs to be finalized. In the event this document was created by someone other than the signing Provider, the individual initiating the document will be listed in the "Entered by:" or "Dictated by:" ernandez. 1 of 1 Assessment - Problem List Assessment: Patient Problems Closed left clavicular fracture (Acute) Pharyngitis with viral syndrome (Acute) Syncope (Acute) Essential hypertension (Chronic) Osteoarthritis of both hips (Chronic) Osteopenia (Chronic) Raynaud phenomenon (Chronic) Plan: Syncope (Acute) This is an episode of vasovagal syncope. She has had these before - though not recently. This was in the context of a viral syndrome and standing up after lying down for the day. She has had a transthoracic echocardiogram. I will check an EKG. However, I don't think she requires further work up. This was not a seizure - she has no features of this ( retrograde amnesia, post ictal confusion). Closed left clavicular fracture (Acute) I have reviewed Dr. King's note - she is likely to have surgery Thursday (tomorrow). She is physically very active and walks at least 2 miles per day including hills. I think she requires no further cardiac risk stratificaiton. Pharyngitis with viral syndrome (Acute) This is resolving without antibacterials Essential hypertension (Chronic) her BP is now normal following IVF. Secondary diagnoses Osteoarthritis of both hips (Chronic) Osteopenia (Chronic) Raynaud phenomenon (Chronic) I think we should have her mobilize/ambulate. If she does well and keeps down her breakfast she can go home, providing her EKG is normal. I discussed this with the patient and she agrees with the management plan. disposition: Home Condition at discharge: Stable
[2019-01-04 08:50] VITALS: BP 148/72
[2019-01-04] MEDS ORDERED: Aspirin EC TAB* 81 MG TAB.EC PO SCH (09:00)
[2019-01-04] MEDS ORDERED: Lisinopril TAB* 10 MG PO SCH (09:00)
--- NOTE | 2019-01-04 09:20 | ECHO ---
*[facility]* [place] [address] Fax #: [phone] Transthoracic Echocardiogram Patient: Anjana Reynolds : 1945 Study Date: 01/04/2019 Age: 73 Gender: F HR: 89 bpm Height: 66 in /167.6 cm BSA: 1.67 m^2 Weight: 129.7 lb /59 kg BMI: 21 kg/m^2 *Auto Slip Cover Installer: * Perla Coy [facility] *Referring Physician: * Francine BarneyReading Physician: * Ronan Boyer MD Indications: Syncope. History: Risk factors: Hypertension. Conclusions Summary: - Left ventricle: Systolic function is normal. The estimated ejection fraction is 60-65%. Wall motion is normal; there are no regional wall motion abnormalities. - Right ventricle: Systolic function is normal. - Mitral valve: There is trace regurgitation. - Aortic valve: There is no evidence of stenosis. - Tricuspid valve: There is trace regurgitation. - Pericardium, extracardiac: There is no significant pericardial effusion. - Pulmonary arteries: Systolic pressure can not be accurately estimated. - Study data: No prior study is available for comparison. Study data: Transthoracic echocardiogram. Procedure: Transthoracic echocardiography was performed. Image quality was fair. The study was technically limited due to poor acoustic window availability. Complete 2D, spectral Doppler, and color flow Doppler. Location: Bedside. Patient status: Inpatient. Patient room number: 450-02. No prior study is available for comparison. Rhythm: Normal sinus rhythm with PVC's. Findings Left ventricle: The cavity size is at the lower limits of normal. Wall thickness is mildly increased. Systolic function is normal. The estimated ejection fraction is 60-65%. Wall motion is normal; there are no regional wall motion abnormalities. Doppler parameters are consistent with abnormal left ventricular relaxation (grade 1 diastolic dysfunction). Right ventricle: The cavity size is mildly dilated. Wall thickness is mildly increased. Systolic function is normal. Left atrium: The atrium is mildly dilated. Right atrium: The atrium is normal in size. Mitral valve: The Mitral valve annulus appears mildly calcified. Mild focal thickening of the anterior leaflet. There is no evidence of stenosis. There is trace regurgitation. Aortic valve: The valve is trileaflet. The leaflets are mildly thickened. There is no evidence of stenosis. There is no significant regurgitation. Tricuspid valve: Poorly visualized. There is no evidence of stenosis. There is trace regurgitation. Pulmonic valve: Not well visualized. There is no evidence of stenosis. Aorta: Aortic root: The aortic root is appears normal. Ascending aorta: The ascending aorta is appears normal. Aortic arch: The aortic arch is appears normal. Pericardium: A prominent pericardial fat pad is present. There is no significant pericardial effusion. Pulmonary arteries: Not well visualized. Systolic pressure can not be accurately estimated. Systemic veins: Inferior vena cava: The vessel is normal in size. There is (>= 50%) respiratory change in the IVC dimension. Measurements Left ventricle Value Ref Right atrium Value Ref LESLY, LAX (L) 3.3 cm 3.8 - 5.2 SI dim, ES 4.7 cm 3.4 - 5.3 ESD, LAX (L) 2.1 cm 2.2 - 3.5 ML dim, ES, A4C 4.3 cm 2.6 - 4.4 FS, LAX 38 % 27 - 45 SI dim, ES, A4C 4.7 cm 3.4 - 5.3 PW, ED, LAX (H) 1.1 cm 0.6 - 0.9 Estimated RAP 3 mm Hg --------- FS 38 % 27 - 45 Mid-wall FS 12 % Aortic valve Value Ref PW, ED (H) 1.1 cm 0.6 - 0.9 Derek diam, ED 1.8 cm --------- PW/ID, ED 0.33 Peak v, S 1.3 m/sec --------- E', lat derek, TDI 10.0 cm/sec >=10.0 VTI, S 26.6 cm --- ------ E/e', lat derek, 8 Mean grad, S 5.0 mm Hg ------ --- TDI Peak grad, S 6.0 mm Hg --------- E', med derek, TDI 8.7 cm/sec >=7.0 LVOT/AV, VTI ratio 0.94 --- ------ E/e', med derek, 9 RENUKA, VTI 2.95 cm^2 ------ --- TDI RENUKA, Vmax 2.85 cm^2 --------- E', avg, TDI 9.4 cm/sec E/e', avg, TDI 8 <=14 Mitral valve Value Ref Peak E 0.78 m/sec --------- LVOT Value Ref Peak A 0.97 m/sec --------- Diam, S 2.00 cm Decel time 243 ms --------- Area 3.1 cm^2 Peak grad, D 2.4 mm Hg --------- Peak ginna, S 1.18 m/sec Peak E/A ratio 0.8 --------- VTI, S 25.0 cm Peak grad, S 6 mm Hg Pulmonic valve Value Ref Mean grad, S 4 mm Hg Peak v, S 0.84 m/sec --------- SV 73 ml Peak grad, S 3.0 mm Hg --------- SV/bsa 44 ml/m^2 Aortic root Value Ref Ventricular septum Value Ref Root diam 2.8 cm <3.9 IVS, ED (H) 1.1 cm 0.6 - 0.9 Root max diam, ED 2.8 cm <3.9 Right ventricle Value Ref Ascending aorta Value Ref AW thickness, ED (H) 0.8 cm 0.1 - 0.5 AAo AP diam, S 3.2 cm --------- LESLY, LAX 2.8 cm LESLY minor ax, A4C (H) 4.0 cm 1.9 - 3.5 Aortic arch Value Ref mid Arch diam 1.6 cm --------- Left atrium Value Ref Decending aorta Value Ref AP dim, ES 2.90 cm 2.70 - Gaby peak ginna 0.63 m/sec --------- 3.80 ML dim, A4C 4.3 cm Inferior vena cava Value Ref SI dim, A4C 4.0 cm Diam 1.5 cm --------- Vol/bsa, ES, 1-p 21 ml/m^2 11 - 40 A4C Vol/bsa, ES, A/L (H) 35 ml/m^2 16 - 34 Legend: (L) and (H) soham values outside specified reference range. Prepared and electronically signed by Ronan Boyer MD 01/04/2019 09:20
--- NOTE | 2019-01-04 14:03 | PN ---
Progress Note - Progress Note Date of Service: 01/04/19 SOAP: Subjective: []Pt seen at bedside, she feels well without CP, SOB. Her pain is well controlled and she desires DC home and surgical fixation of her clavicle as an outpatient. Objective: []Gen: NAD, appears well LUE: Tender over lateral clavicle, eccymosis of posteiror shoulder. Able to flex and extend at elbow, wrist and digits without pain. Sensation intact to light touch throughout LUE, cap refill less than two seconds distally, radial pulse 2+. Assessment: []ASSESSMENT: Left lateral clavicle fracture, displaced. Plan: []Sling SOHAN Pt desires surgery, she is being discharged from the hospital today and has Dr Patel number to schedule her outpatient procedure. Vital Signs Temp 98.2 F 01/04/19 07:15 Pulse 91 01/04/19 07:15 Resp 16 01/04/19 07:15 BP 148/72 01/04/19 07:15 Pulse Ox 97 01/04/19 07:15 Intake & Output 01/03/19 01/04/19 01/04/19 18:59 06:59 18:59 Intake Total 2000 0 Output Total 0 Balance 2000 0 Weight 132 lb Intake: IV Fluids 2000 Oral 0 Output: Urine 0 Laboratory Last Values WBC 9.7 10^3/uL (3.5-10.8) 01/04/19 04:32 RBC 4.11 10^6 /uL (3.70-4.87) 01/04/19 04:32 Hgb 12.0 g/dL (12.0-16.0) 01/04/19 04:32 Hct 36 % (35-47) 01/04/19 04:32 MCV 87 fL (80-97) 01/04/19 04:32 MCH 29 pg (27-31) 01/04/19 04:32 MCHC 33 g/dL (31-36) 01/04/19 04:32 RDW 13 % (10-15) 01/04/19 04:32 Plt Count 285 10^3/uL (150-450) 01/04/19 04:32 MPV 7.8 fL (7.4-10.4) 01/04/19 04:32 Neut % (Auto) 81.0 % 01/04/19 04:32 Lymph % (Auto) 9.2 % 01/04/19 04:32 [place] % (Auto) 9.5 % 01/04/19 04:32 Eos % (Auto) 0.1 % 01/04/19 04:32 Baso % (Auto) 0.2 % 01/04/19 04:32 Absolute Neuts (auto) 7.8 10^3/ul (1.5-7.7) H 01/04/19 04:32 Absolute Lymphs (auto) 0.9 10^3/ul (1.0-4.8) L 01/04/19 04:32 Absolute Monos (auto) 0.9 10^3/ul (0-0.8) H 01/04/19 04:32 Absolute Eos (auto) 0.0 10^3/ul (0-0.6) 01/04/19 04:32 Absolute Basos (auto) 0.0 10^3/ul (0-0.2) 01/04/19 04:32 Absolute Nucleated RBC 0.0 10^3/ul 01/04/19 04:32 Nucleated RBC % 0.0 01/04/19 04:32 INR (Anticoag Therapy) 0.98 (0.82-1.09) 01/03/19 11:38 APTT 59.7 seconds (26.0-38.0) H 01/03/19 11:38 Sodium 131 mmol/L (135-145) L 01/04/19 04:32 Potassium 3.4 mmol/L (3.5-5.0) L 01/04/19 04:32 Chloride 105 mmol/L (101-111) 01/04/19 04:32 Carbon Dioxide 22 mmol/L (22-32) 01/04/19 04:32 Anion Gap 4 mmol/L (2-11) 01/04/19 04:32 BUN 9 mg/dL (6-24) 01/04/19 04:32 Creatinine 0.50 mg/dL (0.51-0.95) L 01/04/19 04:32 Est GFR ( Amer) 146.3 (>60) 01/04/19 04:32 Est GFR (Non-Af Amer) 120.9 (>60) 01/04/19 04:32 BUN/Creatinine Ratio 18.0 (8-20) 01/04/19 04:32 Glucose 100 mg/dL (70-100) 01/04/19 04:32 Serum Osmolality 275 mOsm/kg (275-295) 01/03/19 11:38 Lactic Acid 1.1 mmol/L (0.5-2.0) 01/03/19 16:20 Calcium 8.6 mg/dL (8.6-10.3) 01/04/19 04:32 Total Bilirubin 0.60 mg/dL (0.2-1.0) 01/03/19 11:38 AST 19 U/L (13-39) 01/03/19 11:38 ALT 11 U/L (7-52) 01/03/19 11:38 Alkaline Phosphatase 93 U/L (34-104) 01/03/19 11:38 Troponin I 0.01 ng/mL (<0.04) 01/03/19 21:39 Total Protein 7.5 g/dL (6.4-8.9) 01/03/19 11:38 Albumin 4.1 g/dL (3.2-5.2) 01/03/19 11:38 Globulin 3.4 g/dL (2-4) 01/03/19 11:38 Albumin/Globulin Ratio 1.2 (1-3) 01/03/19 11:38 TSH 0.79 mcIU/mL (0.34-5.60) 01/03/19 11:38 Urine Color Yellow 01/03/19 12:41 Urine Appearance Cloudy 01/03/19 12:41 Urine pH 7.0 (5-9) 01/03/19 12:41 Ur Specific [place] 1.009 (1.010-1.030) L 01/03/19 12:41 Urine Protein Negative (Negative) 01/03/19 12:41 Urine Ketones Trace (Negative) A 01/03/19 12:41 Urine Blood Negative (Negative) 01/03/19 12:41 Urine Nitrate Negative (Negative) 01/03/19 12:41 Urine Bilirubin Negative (Negative) 01/03/19 12:41 Urine Urobilinogen Negative (Negative) 01/03/19 12:41 Ur Leukocyte Esterase Trace (Negative) A 01/03/19 12:41 Urine WBC (Auto) Trace(0-5/hpf) (Absent) 01/03/19 12:41 Urine RBC (Auto) Trace(0-2/hpf) (Absent) 01/03/19 12:41 Amorphous Crystals Present (Absent) A 01/03/19 12:41 Urine Bacteria Absent (Absent) 01/03/19 12:41 Urine Osmolality 481 mOsm/kg (100-1150) 01/04/19 05:30 U Sodium Concentration 72 mmol/L 01/04/19 05:30 Urine Glucose Negative (Negative) 01/03/19 12:41 Influenza A (Rapid) Negative (Negative) 01/03/19 11:51 Influenza B (Rapid) Negative (Negative) 01/03/19 11:51 Group A Strep Rapid Negative (Negative) 01/03/19 11:51
== END 2019-01-04 12:00 | disposition home or self-care (01) ==
LOC: ED 10:38 → MEDTELE 15:39
PROVIDERS: ADMIT Internal Medicine; ATTEND Internal Medicine
DX: S42.002A Fracture of unspecified part of left clavicle, initial encounter for closed fracture (principal); R55 Syncope and collapse; I73.00 Raynaud's syndrome without gangrene; M85.80 Other specified disorders of bone density and structure, unspecified site; R42 Dizziness and giddiness; B34.9 Viral infection, unspecified; M25.512 Pain in left shoulder; I10 Essential (primary) hypertension; R05 Cough; J02.9 Acute pharyngitis, unspecified; M16.0 Bilateral primary osteoarthritis of hip; Z79.899 Other long term (current) drug therapy; Z79.82 Long term (current) use of aspirin; W19.XXXA Unspecified fall, initial encounter; Y92.9 Unspecified place or not applicable
CPT/HCPCS: 36415; 80048; 80053; 81003; 81015; 83605; 83930; 83935; 84300; 84443; 84484; 85025; 85610; 85730; 87040; 87086; 87651; 93005; 93306; 96360; 96361; 96372; 99284; A9270-GY; G0378; J1644

== ENCOUNTER → 2019-01-14 11:48 | Day surgery (SDC) | payer MEDICARE ==
[~2019-01-14 11:48] MED LIST changes: +Acetaminophen TAB* 325 MG ONE; +Acetaminophen TAB* 325 MG PO ONE; +Buffered Lidocaine 1% SYRIN* 1 ML/SYRINGE INTRADERM ONE; +Bupivacaine 0.25% W/EPI* 10 ML SDV ONE; -Bupivacaine 0.5% SDV PF* 30 ML VIAL ONE; +Dexamethasone IV* 4 MG/ML 1 ML (4 MG) ONE; +DiMENhydriNATE IV* 50 MG/ML VIAL IV PUSH PRN; +EPHEDrine (Pressors)* 50 MG/ML VIAL ONE; +Famotidine IV* 10 MG/ML 2 ML (20 mg) IV ONE; +Famotidine IV* 10 MG/ML 2 ML (20 mg) ONE; +Gabapentin CAP(*) 300 MG ONE; +Gabapentin CAP(*) 300 MG PO ONE; +HYDROmorphone INJ1* 1 MG/ML SYRINGE IV PRN; +Ketorolac INJ* 30 MG/ML 1 ML VIAL ONE; +Lactated Ringers 1000 ML Bag* 1,000 ML IV SCH; +Midazolam* 1 MG/ML 2 ML VIAL (2 MG) ONE; +Naloxone* 0.4 MG/ML 1 ML VIAL IV PRN; +Ondansetron INJ* 2 MG/ML VIAL IV PRN; +Ondansetron INJ* 2 MG/ML VIAL ONE; +Propofol* 10 MG/ML 20 ML BTL ONE; +Rocuronium* 10 MG/ML VIAL ONE; +ceFAZolin 2 GM in NS PREMIX(*) 2 GM/100 ML BAG IVPB ONE; +fentaNYL* 50 MCG/ML 2 ML VIAL (100 MCG VIAL) IV PRN; +fentaNYL* 50 MCG/ML 2 ML VIAL (100 MCG VIAL) ONE; +oxyCODONE/Acetamin 5/325 MG* TAB ONE
[2019-01-14 18:39] VITALS: BP 166/90
--- NOTE | 2019-01-14 23:50 | OP ---
OPERATIVE REPORT: DATE OF OPERATION: 01/14/19 DATE OF : 45 SURGEON: Faisal King MD SPORTS ANCHOR: CARLITA Arora A physician technology assistant was required for the length of the procedure for assistance with patient positi oning, retraction, instrumentation and closure. ANESTHESIOLOGIST: Dr. Rae. ANESTHESIA: General anesthesia, local anesthesia using 10 cc of 0.25% Marcaine with epinephrine. PRE-OP DIAGNOSIS: Left lateral clavicle fracture. POST-OP DIAGNOSIS: Left lateral clavicle fracture. PROCEDURE: Open reduction and internal fixation, left lateral clavicle fracture. ANTIBIOTICS: Ancef 2 g IV. IV FLUIDS: See Anesthesia note. SKIN TO SKIN TIME: 82 minutes. SPECIMEN: None. IMPLANTS: A 2.7 mm fully threaded screw, Synthes, placed across fracture site from anterolateral to posteromedial. Lateral clavicle hook plate, 12-mm offset, 5-hole plate. COMPLICATIONS: None. ESTIMATED BLOOD LOSS: Minimal. INDICATIONS: The patient is a 73-year-old woman, right-hand dominant, retired systems accountant, who lives alone, who sustained a fall on 01/03/19, 11 days preoperatively. The fall was secondary to an episod e of syncope. The patient was brought to [facility]. I saw the patient as an inpatient consult on 01/03/19 . I discussed the diagnosis of a displaced lateral clavicle fracture and the nonoperative and operat chadwick treatment options. The patient was interested in surgery. She was discharged soon thereafter, t he next day and initially we had planned on surgery 01/05/19, tentatively; however, the patient had a n upper respiratory infection and so, we delayed surgery. I discussed risks and potential complications of surgery with the patient. Discussed the need to cameron ve the clavicle or acromion hook plate 3 to 4 months postoperatively in the operating room. DESCRIPTION OF PROCEDURE: In preoperative holding, the patient signed a written consent. Operative extremity was marked in the preoperative holding. The patient was taken back to the operating room, placed supine on operating room table, sedated and intubated. The patient was converted in to the lazy beach chair position. The head was positioned with a doughn ut pad behind the head and Cob[place]. Prep and drape. Formal surgical time out. An incision was made, transverse, over the mid and lateral clavicle and acromion. Dissected down to c lavicle. Dissected to acromion, but was careful not to incise any facial tissue or periosteum or cap coy overlying the AC joint or acromion. Cleared off fracture site. Debrided it with curette rongejaspal rs. Irrigation. Provisional reduction with a large clamp. I placed a 2.7-mm screw from anterolateral to posteromedia l. This kept the fracture reduced. We used templates and determined that a 12-mm stepoff would be best. Initially, I had considered 15 mm, but decided on 12 mm after obtaining some x-rays and examining the shoulder. Decided on a 5-hole plate, the longest 12-mm offset plate. Opened the plate. Placed it in the shoulder. I first placed a nonlocking screw in the medial most h ole in the plate. Obtained x-rays, which showed excellent reduction of clavicle and good placement o f the hook plate. Then, placed 3 locking screws through the hook plate. The 5th hole was at the fracture site, so coul d not be utilized. Obtained final x-ray images. Forward flexed and abducted the shoulder to at least 90 degrees without any plate dislodgement or movement by x-ray. Irrigation. Closure of the deltopectoral trapezial fascia with [id number] stitches using Vicryl 0 suture. I supplemented this with several stitches using Vicryl 2-0 suture. Some more superficial tissue was closed with buried simple stitches using Vicryl 2-0 suture. The more superficial subcuta neous layer was closed with buried stitches using Vicryl 3-0 suture. Subcuticular closure was perfor med with Monocryl 3.0 suture, running stitch. Mastisol, Steri-Strips. 10 cc of local injected. 4x4 s, Tegaderm. A sling was placed. We should have gotten her a cooling unit, did we, probably not. T he patient awakened, extubated and transferred to the PACU. DISPOSITION: The patient was discharged home when medically stable. Wound care instructions provide d. Percocet as needed for pain control. Short course of Keflex antibiotics to avoid infection. Sli ng at all times. The patient will follow up with me 10 to 14 days postoperatively. [id number]/[facility] #: [id number]
== END | disposition home or self-care (01) ==
LOC: OR 11:48
PROVIDERS: ATTEND Orthopaedic Surgery
DX: S42.032A Displaced fracture of lateral end of left clavicle, initial encounter for closed fracture (principal); R55 Syncope and collapse; I10 Essential (primary) hypertension; W19.XXXA Unspecified fall, initial encounter; Y92.9 Unspecified place or not applicable
CPT/HCPCS: 76000; A9270-GY; C1713; C1776; J0690; J1100; J1885; J2250; J2405; J2704; J3010

== ENCOUNTER 2019-05-04 10:24 | Day surgery (SDC) | payer MEDICARE ==
[~2019-05-04 10:24] MED LIST changes: -Acetaminophen TAB* 325 MG ONE; -Acetaminophen TAB* 325 MG PO ONE; -Bupivacaine 0.25% W/EPI* 10 ML SDV ONE; +Dexamethasone IV* 4 MG/ML 1 ML (4 MG) IV SLOW PU ONE; -DiMENhydriNATE IV* 50 MG/ML VIAL IV PUSH PRN; -EPHEDrine (Pressors)* 50 MG/ML VIAL ONE; -Gabapentin CAP(*) 300 MG ONE; -Gabapentin CAP(*) 300 MG PO ONE; -HYDROmorphone INJ1* 1 MG/ML SYRINGE IV PRN; -Ketorolac INJ* 30 MG/ML 1 ML VIAL ONE; -Midazolam* 1 MG/ML 2 ML VIAL (2 MG) ONE; -Naloxone* 0.4 MG/ML 1 ML VIAL IV PRN; -Ondansetron INJ* 2 MG/ML VIAL IV PRN; -Ondansetron INJ* 2 MG/ML VIAL ONE; -Propofol* 10 MG/ML 20 ML BTL ONE; -Rocuronium* 10 MG/ML VIAL ONE; -fentaNYL* 50 MCG/ML 2 ML VIAL (100 MCG VIAL) IV PRN; -fentaNYL* 50 MCG/ML 2 ML VIAL (100 MCG VIAL) ONE; -oxyCODONE/Acetamin 5/325 MG* TAB ONE
[2019-05-04] MEDS ORDERED: fentaNYL* 50 MCG/ML 2 ML VIAL (100 MCG VIAL) ONE (12:25)
[2019-05-04] MEDS ORDERED: Propofol* 10 MG/ML 20 ML BTL ONE (12:25)
[2019-05-04] MEDS ORDERED: Bupivacaine 0.5% W/EPI SDV* 30 ML VIAL ONE (12:33)
[2019-05-04] MEDS ORDERED: Phenylephrine 40 MCG/ML SYRINGE ONE (12:42)
[2019-05-04] MEDS ORDERED: EPHEDrine (Pressors)* 50 MG/ML VIAL ONE (12:52)
[2019-05-04] MEDS ORDERED: Ondansetron INJ* 2 MG/ML VIAL ONE ×2 (12:52)
[2019-05-04] MEDS ORDERED: DiMENhydriNATE IV* 50 MG/ML VIAL IV PUSH PRN (13:14)
[2019-05-04] MEDS ORDERED: fentaNYL* 50 MCG/ML 2 ML VIAL (100 MCG VIAL) IV PRN (13:14)
[2019-05-04] MEDS ORDERED: Naloxone* 0.4 MG/ML 1 ML VIAL IV PRN (13:14)
[2019-05-04] MEDS ORDERED: Ketorolac INJ* 30 MG/ML 1 ML VIAL IV PRN (13:14)
[2019-05-04] MEDS ORDERED: Ketorolac INJ* 30 MG/ML 1 ML VIAL ONE (14:16)
[2019-05-04 15:41] VITALS: BP 164/87
--- NOTE | 2019-05-05 03:20 | OP ---
OPERATIVE REPORT: DATE OF OPERATION: 05/04/19 - [facility] DATE OF : 45 SURGEON: Faisal King MD. FRENCH EDGE OPERATOR: CARLITA Valentine. While many removal of hardware procedures do not require an geological survey field assistant, I would argue that this one does as it is especially deep and requires retraction and other assistance. Physician geological survey field assistant was vital for the patient positioning, retraction, instrumentation, and closure. ANESTHESIOLOGIST: Dr. Sly Felipe. ANESTHESIA: General anesthesia, local anesthesia using 10 cc of Marcaine 0.5% with epinephrine. PRE-OP DIAGNOSES: 1. Status post 01/14/19 open reduction internal fixation left lateral clavicle fracture with a clavicle hook plate. 2. Retained left shoulder clavicle hook plate. 3. 02/09/19 left mid shaft clavicle fracture, managed nonoperatively. POST-OP DIAGNOSES: 1. Status post 01/14/19 open reduction internal fixation left lateral clavicle fracture with a clavicle hook plate. 2. Retained left shoulder clavicle hook plate. 3. 02/09/19 left mid shaft clavicle fracture, managed nonoperatively. OPERATIVE PROCEDURE: Removal of hardware left shoulder clavicle, deep. ANTIBIOTICS: Ancef 2 g IV. IV FLUIDS: See anesthesia note. XYMY-YH-[id number] TIME: 48 minutes. SPECIMEN: Synthes clavicle hook plate removed with screws, 3.5 locking and non - locking and 2.7 mm non-locking. IMPLANTS: None. ESTIMATED BLOOD LOSS: Minimal. COMPLICATIONS: None. RADIATION EXPOSURE: Several images obtained using a large C-arm. INDICATIONS FOR PROCEDURE: The patient is a 74-year-old woman who initially in the 2018 sustained a left shoulder lateral clavicle fracture with displacement. Because of the high rate of non-union and malunion of that injury , the patient opted for surgery. I spoke to the patient preoperatively before that operation about how the surgical treatment would be with a clavicle hook plate and that the clavicle hook plate is required to be removed with a second operation 3 to 4 months postoperatively. The patient understood this. The patient underwent an uncomplicated open reduction internal fixation with clavicle hook plate on 01/14/19. The patient did very well postoperatively until approximately 4 weeks postoperative, at which time she went for a long walk and fell. With that fall , she sustained a second clavicle fracture in a different location. This second clavicle fracture was about the mid shaft clavicle just about the most medial screw placed through the clavicle hook plate. There was a superior apex angulation at the fracture site, although there was no clear significant translational deformity. No translational displacement at the fracture site. We discussed operative and nonoperative management of this. Given that this was a mid shaft fracture with good bony apposition, very likely to heal, I did not think surgery was required for that, as well would have been very difficult and possibly counter effective to place a second plate or to remove the prior clavicle hook plate and place only one screw longer. Therefore, we decided to manage that nonoperatively. I took many x-ray images as well as a CT scan to confirm that the hook of the hook plate was still resting comfortably against the inferior aspect of the acromion rather than digging into the rotator cuff despite the change in position of the shaft of the clavicle with that mid shaft clavicle fracture. That made me comfortable leaving the hardware in place until it was to be removed 3 to 4 months after the initial procedure. The patient was made aware of risks and potential complications of surgery. Of note, prior to the surgery, the patient had not regained her full range of motion. The patient still has some limitations in passive and active range of motion. DESCRIPTION OF PROCEDURE: In preoperative holding, the patient signed a written consent. Operative extremity was marked in preoperative holding. The patient was taken back to the operating room, placed supine on the operating room table. Sedated and intubated. The patient was converted into a lazy beach chair position. Padded appropriately, restrained appropriately. Left shoulder was prepped and draped. Surgical time-out was performed. Identified the old surgical skin scar and I incised through it. I dissected down to the plate and clavicle. I debrided scar tissue, soft tissue off of the plate. Removed the screws that had been placed through the plate. I removed the plate atraumatically. Considered leaving the 2.[address] screw in place, although because the lateral clavicle fracture appeared to have healed so well, I went ahead and removed that. C-arm images were obtained and showed all hardware had been removed. I tested the stability of the 2 fracture sites, both by palpating them and trying to remove parts of the clavicle differentially. This showed solid bony union to touch. Also radiographically, when I put pressure on the clavicle, both fracture sites appeared to have significant bony healing to them. Fracture line lucency of the lateral clavicle fracture was not appreciated. There was clear lucency about the mid shaft clavicle but not well visible and clearly by touch and radiographs, there was significant healing of that mid shaft clavicle fracture. I manipulated rightly, using careful technique, the left shoulder and noted a significant improvement in range of motion and was able to externally and internally rotate the shoulder 90 degrees with the shoulder abducted about 90 degrees. I did not obtain full forward flexion. I did not want to push the issue too aggressively but the patient must have gotten at least at a minimum 130 degrees of forward flexion. Irrigation. I debrided fibrous tissue off the superior aspect of the clavicle. I curetted all of the screw holes of the bone. Closure of the fascial layer with [id number] stitches using Vicryl 0 suture. Closure of some deeper tissue with buried simple stitches using Vicryl 2 -0 suture. Closure of subcutaneous tissue with buried simple stitches using Vicryl 3-0 suture. Monocryl 3-0 for closure of the subcuticular layer. Local anesthetic. Mastisol, Steri-Strips, 4x4s, Tegaderm, sling. The patient was awakened, extubated, and transferred to PACU. DISPOSITION: Sling as needed. Physical therapy to start immediately for range of motion and strengthening. Follow up in 10 to 14 days. Pain medication as needed. [id number]/[facility] #: [id number] MTDD
== END 2019-05-04 15:30 | disposition home or self-care (01) ==
LOC: OR 10:24
PROVIDERS: ATTEND Orthopaedic Surgery
DX: Z47.2 Encounter for removal of internal fixation device (principal); S42.032D Displaced fracture of lateral end of left clavicle, subsequent encounter for fracture with routine healing; W19.XXXD Unspecified fall, subsequent encounter; Y92.9 Unspecified place or not applicable; I10 Essential (primary) hypertension; I73.00 Raynaud's syndrome without gangrene; M19.90 Unspecified osteoarthritis, unspecified site; F32.9 Major depressive disorder, single episode, unspecified
CPT/HCPCS: 76000; 88300; J0690; J1100; J1885; J2405; J2704; J3010

== ENCOUNTER 2021-12-14 17:29 | Observation (INO) ==
[2021-12-14] MEDS ORDERED: Iodixanol (CONTRAST) 320 MG/ML 100 ML SDV IV ONE (18:04)
[2021-12-14 18:12] LABS: ABS Eosinophils 0.1 10^3/ul (0-0.6); ABS Monocytes 0.5 10^3/ul (0-0.8); ABS Neutrophils 2.8 10^3/ul (1.5-7.7); Hematocrit 42 % (35-47); Hemoglobin 13.8 g/dL (12.0-16.0); Lymphocyte % 22.7 %; Mean Corpuscular HGB Conc 33 g/dL (31-36); Mean Corpuscular Hemoglobin 29 pg (27-31); Mean Corpuscular Volume 86 fL (80-97); Mean Platelet Volume 7.3 fL (7.4-10.4); Platelet Count 337 10^3/uL (150-450); Red Blood Count 4.82 10^6 /uL (3.70-4.87); Red Cell Distribution Width 13 % (10-15); White Blood Count 4.5 10^3/uL (3.5-10.8)
[2021-12-14 18:26] LABS: Activated Partial Thrombo Time 39.6 seconds (26.0-38.0); INR 0.93 (0.89-1.11)
[2021-12-14 18:59] LABS: Urine Appearance Clear; Urine Bilirubin Negative (Negative); Urine Blood Negative (Negative); Urine Color Straw; Urine Glucose Negative (Negative); Urine Ketones Trace (Negative); Urine Nitrite Negative (Negative); Urine Protein Negative (Negative); Urine Specific Gravity 1.016 (1.002-1.030); Urine Urobilinogen Negative (Negative)
[2021-12-14 19:13] LABS: ALT 11 U/L (7-52); Albumin 3.7 g/dL (3.2-5.2); Albumin/Globulin Ratio 1.1 (1-3); Alkaline Phosphatase 74 U/L (35-149); Blood Urea Nitrogen 13 mg/dL (6-24); CO2 Carbon Dioxide 23 mmol/L (22-32); Chloride 96 mmol/L (101-111); Cholesterol 195 mg/dL; Globulin 3.3 g/dL (2-4); Glucose 93 mg/dL (70-100); HDL Cholesterol 80.7 mg/dL; LDL Cholesterol 101 mg/dL; Sodium 125 mmol/L (135-145); Triglycerides 67 mg/dL; eGFR CKD-EPI 91.9 (>60)
[2021-12-14 19:22] LABS: Anion Gap 6 mmol/L (2-11)
[2021-12-14 21:21] LABS: Osmolality Serum 279 mOsm/kg (275-295)
[2021-12-14 21:48] LABS: Urine Osmo 242 mOsm/kg (150-1150)
[2021-12-14] MEDS: Enoxaparin 40 MG/0.4 ML SYR SUBCUT SCH (22:30)
[2021-12-15] MEDS ORDERED: Lactated Ringers 1000 ml BAG 1,000 ML IV ONE (04:36)
[2021-12-15 06:12] LABS: ABS Lymphocytes 0.5 10^3/ul (1.0-4.8); ABS Monocytes 0.4 10^3/ul (0-0.8); ABS Neutrophils 3.1 10^3/ul (1.5-7.7); Eosinophil % 0.4 %; Hematocrit 27 % (35-47); Hemoglobin 8.5 g/dL (12.0-16.0); Lymphocyte % 11.4 %; Mean Corpuscular HGB Conc 32 g/dL (31-36); Mean Corpuscular Hemoglobin 28 pg (27-31); Mean Corpuscular Volume 87 fL (80-97); Mean Platelet Volume 7.3 fL (7.4-10.4); Platelet Count 236 10^3/uL (150-450); Red Blood Count 3.05 10^6 /uL (3.70-4.87); Red Cell Distribution Width 13 % (10-15)
[2021-12-15 06:49] LABS: Calcium 9.2 mg/dL (8.6-10.3); HDL Cholesterol 76.7 mg/dL; Magnesium 1.9 mg/dL (1.9-2.7); Potassium 4.3 mmol/L (3.5-5.0); eGFR CKD-EPI 90.9 (>60)
[2021-12-15 07:02] LABS: TSH Ultra Thyroid Stim Horm 1.2 mcIU/mL (0.34-5.60)
[2021-12-15] MEDS: Enoxaparin 40 MG/0.4 ML SYR SUBCUT SCH (21:20)
[2021-12-16 08:14] LABS: ABS Eosinophils 0.1 10^3/ul (0-0.6); ABS Lymphocytes 0.9 10^3/ul (1.0-4.8); ABS Monocytes 0.7 10^3/ul (0-0.8); ABS Neutrophils 5.4 10^3/ul (1.5-7.7); Eosinophil % 0.8 %; Hematocrit 42 % (35-47); Hemoglobin 13.9 g/dL (12.0-16.0); Lymphocyte % 12.3 %; Mean Corpuscular HGB Conc 33 g/dL (31-36); Mean Corpuscular Hemoglobin 28 pg (27-31); Mean Corpuscular Volume 86 fL (80-97); Platelet Count 341 10^3/uL (150-450); Red Blood Count 4.94 10^6 /uL (3.70-4.87); Red Cell Distribution Width 13 % (10-15); White Blood Count 7.1 10^3/uL (3.5-10.8)
[2021-12-16 09:14] LABS: Ferritin 134.5 ng/mL (11-307)
[2021-12-16 09:18] LABS: Folate 12.98 ng/mL (5.90-24.80)
[2021-12-16 17:28] VITALS: BP 156/71
[2021-12-16] MEDS: Enoxaparin 40 MG/0.4 ML SYR SUBCUT SCH (21:43)
== END 2021-12-16 22:38 | disposition home or self-care (01) ==
LOC: ED 17:29 → EDHOLD 17:29 → SUATTDRO 20:38 → EDHOLD 12-15 15:22 → MEDTELE 12-15 16:03
PROVIDERS: ADMIT Internal Medicine; ATTEND Internal Medicine